=== PATIENT | female | born 1995 | race Two or more races ===

== ENCOUNTER 2025-10-07 16:41 | Emergency (ER) | payer MEDICAID ==
[~2025-10-07] VITALS: Ht 167.6 cm; Wt 98.8 kg
[2025-10-07 16:43] VITALS: BP 138/95; PULSE 77; RESP 16; TEMP 97.5; O2SAT 99
[2025-10-07] MEDS ORDERED: LIDOCAINE 1% HCL (LOCAL ANESTH.) INJ 20ML MDV ID ONE (18:45)
== END 2025-10-07 18:48 | disposition left against medical advice (07) ==
LOC: ER 16:41
DX: S91.312A Laceration without foreign body, left foot, initial encounter (principal); Z53.21 Procedure and treatment not carried out due to patient leaving prior to being seen by health care provider; X58.XXXA Exposure to other specified factors, initial encounter; Y93.89 Activity, other specified; Y92.89 Other specified places as the place of occurrence of the external cause; Y99.8 Other external cause status